=== PATIENT | male | born 1985 | race Caucasian/White ===

== ENCOUNTER 2018-08-29 12:56 | Emergency (ER) | payer SELFPAY ==
[2018-08-29 12:57] VITALS: BP 130/98; PULSE 96; RESP 17; TEMP 36.9; O2SAT 96; BMI 24.2
[2018-08-29] MEDS: Tetracaine 0.5% Ophthalmic Bottle 1 DRP LEFT EYE (13:46)
[2018-08-29] MEDS: Fluorescein 1 MG STRIP 1 STRIP LEFT EYE (13:46)
--- NOTE | 2018-08-29 14:05 | ED.VIS.EYE ---
History of Present Illness Chief Complaint: Eye Problem Informant: Patient Location: Left Eye Onset: Today Context: Sudden Onset Timing: Continuous Current Severity: Moderate Maximum Severity: Severe Worsened by: Blinking and light Relieved by: Nothing Associated Symptoms - Eyes: Drainage, Foreign body sensation, Photophobia, Redness Visual Changes: left: Blurred vision - Blurred vision clears with blinking History of injury: Yes, Foreign body, Grinding injury - Patient Visual correction: None Narrative: Patient is a 32-year-old male who was wearing safety glasses while grinding metal. He states tay of wind blew a piece of metal under his glass. There is no history of metal pounding on metal. He has no history of glaucoma or eye problems. Prior similar symptoms: No Recent Illness/Hospitalization: No Past Medical History - Allergies and Home Meds Allergies/Adverse Reactions: Allergies Penicillins Allergy (Verified 08/29/18 12:57) Unknown Primary Care Physician: Care Physician,No Primary [Primary Care Provider] - Past Medical History: None Surgical History: no surgical history Lives: Spouse/ Significant Other Smoking Status: Former smoker Alcohol: Rare Review of Systems Eyes: Reports: Blurred vision - left. Denies: Blurred vision - right, Diplopia ENT: Denies: Bilateral ear pain, Rhinorrhea, Sore throat Hematologic: Denies: Easy bruising, Easy bleeding Allergy: Denies: Uticaria, Swelling of the mouth Physical Exam Visual Acuity: bilateral: 20/20 Visual Acuity: Uncorrected Eyelid: Normal inspection, Right eyelid everted, Left eyelid everted, No foreign body, - - Only positives were marked since unable to\negatives Right Conjunctiva/Sclera: Normal inspection, No foreign body, No erythema Left Conjunctiva/Sclera: - - Sclera is injected and there is a corneal foreign body noted 2 to 3 mm limbal border at 5:00 Right Cornea: Normal inspection, No foreign body, No abrasion, No dye uptake Left Cornea: Normal inspection, Tetracaine instilled, Corneal abrasion, Fluorescein dye uptake, Foreign body Extraocular Motion: Normal exam, No pain, No palsy, No nystagmus Pupils: Normal accomodation, PERRL Right pupil size in mm: 2 Left pupil size in mm: 2 Anterior chamber: Normal exam, Deep and quiet Vital Signs/Narrative: Vital Signs Temp Pulse Resp BP Pulse Ox 08/29/18 12:57 98.4 F 96 17 130/98 H 96 Inital Vital Signs reviewed: Yes General: Well nourished, Well developed Head: Normocephalic, Atraumatic ENT: Moist mucous membranes, No rhinorrhea Cardiovascular: Regular rate, Regular rhythm, No murmurs, Normal S1, Normal S2 Respiratory: No distress, CTA bilaterally Skin: Normal color, No rash Neurological: Alert, Oriented x3, Cranial nerves II-XII grossly intact Psychological: Normal affect Diagnostic/Tx/Re-eval None were obtained nor were any indicated - Treatment and Re-Evaluation Foreign body removal: Eye jenaro Residual rust ring: No Removed with eye jenaro: Yes Tetracaine: left eye - Medical Decision Making Patient has a metallic foreign body with rust ring noted. Patient's left eye was anesthetized tetracaine. Use no vomiting for metallic foreign body and rust ring were removed completely. Patient tolerated procedure well. Verbal consent was obtained. Procedures Procedure(s): Removal of metallic foreign body and rust ring using ophthalmic bur ED Disposition - Plan for ED Patient: Disposition: Home or Assisted Living Diagnosis: Corneal foreign body Instructions: ED Foreign Body Cornea Referrals: Care Physician,No Primary [Primary Care Provider] - Vivien Heaton [NON-STAFF] - 3-5 Days if not improving
== END 2018-08-29 14:25 | disposition home or self-care (01) ==
PROVIDERS: Emergency Provider Emergency Medicine
DX: T15.02XA Foreign body in cornea, left eye, initial encounter (principal); X58.XXXA Exposure to other specified factors, initial encounter; Y93.89 Activity, other specified; Y92.9 Unspecified place or not applicable; Z87.891 Personal history of nicotine dependence
CPT/HCPCS: 65220; 99283